=== PATIENT | female | born 1960 | race Caucasian/White ===

== ENCOUNTER 2022-03-17 12:13 | Inpatient (IN) | payer OTHER, BC ==
[~2022-03-17] VITALS: Ht 167.6 cm; Wt 96.3 kg
[2022-03-17] MEDS ORDERED: HYDROmorphone HCL 2 MG/ML VL/or syr IV ONE (15:15)
[2022-03-17] MEDS ORDERED: ONDANSETRON HCL 4 MG/2 ML VIAL IV ONE (15:15)
[2022-03-17] MEDS ORDERED: SODIUM CHLORIDE 0.9% 1,000 ML IV ONE (16:45)
[2022-03-17 19:00] LABS: Basophils # (auto) 0.1 10 ^3/uL (0-0.2); Basophils % (auto) 0.6 % (0.0-2.0); Eosinophils # (auto) 0.1 10 ^3/uL (0-0.8); Eosinophils % (auto) 0.9 % (0.0-7.0); Hematocrit 40.3 % (36.0-46.0); Hemoglobin 13.4 g/dL (12.2-16.2); Lymphocytes # (auto) 1.7 10 ^3/uL (0.4-5.4); Lymphocytes % (auto) 17.6 % (10.0-50.0); Mean Corpuscular Hemoglobin 30.2 pg (28.0-32.0); Mean Corpuscular Hgb Conc. 33.1 g/dL (32.0-36.0); Mean Corpuscular Volume 91.3 fL (80.0-100.0); Monocytes # (auto) 0.6 10 ^3/uL (0-1.3); Neutrophils # (auto) 7.1 10 ^3/uL (1.6-8.6); Neutrophils % (auto) 74.9 % (37.0-80.0); Red Blood Cells 4.42 10^6/uL (4.0-5.20); Red Cell Distribution Width 13.8 % (11.8-14.3); White Blood Cell 9.5 10^3/uL (4.4-10.8)
[2022-03-17 19:15] LABS: INR 1.03 (0.9-1.15)
[2022-03-17 19:18] LABS: Albumin 3.8 g/dL (3.4-5.0); BUN/Creatinine Ratio 25.9; Potassium 4.2 mmol/L (3.5-5.1)
[2022-03-17 19:21] LABS: Bilirubin, Total 0.4 mg/dL (0.2-1.0); Total Protein 6.9 g/dL (6.4-8.2)
[2022-03-17] MEDS: SODIUM CHLORIDE 0.9% 1,000 ML IV SCH (20:56)
[2022-03-17] MEDS: HYDROmorphone HCL 2 MG/ML VL/or syr IV PRN (20:57)
[2022-03-17] MEDS: ONDANSETRON HCL 4 MG/2 ML VIAL IV PRN (21:40)
[2022-03-18] VITALS (7 sets, daily range): BP systolic 134–172; BP diastolic 66–95
[2022-03-18] MEDS: MORPHINE SULFATE INJ 2 MG/ml SYRG IV PRN ×5 (00:10→21:32)
[2022-03-18] MEDS: HYDROmorphone HCL 2 MG/ML VL/or syr IV PRN ×6 (01:49→23:10)
[2022-03-18] MEDS: ONDANSETRON HCL 4 MG/2 ML VIAL IV PRN ×3 (01:58→14:44)
[2022-03-18] MEDS ORDERED: METO-158 PO (03:06)
[2022-03-18] MEDS ORDERED: LOSA-39 PO (03:06)
[2022-03-18] MEDS ORDERED: GABA300C10 PO (03:06)
[2022-03-18] MEDS ORDERED: SUMA100T15 PO (03:06)
[2022-03-18] MEDS ORDERED: DULO60CA PO (03:06)
[2022-03-18] MEDS ORDERED: THYR30TA PO (03:06)
[2022-03-18] MEDS: SODIUM CHLORIDE 0.9% 1,000 ML IV SCH ×2 (04:45→13:57)
[2022-03-18] MEDS ORDERED: ZOLP10TA PO (04:51)
[2022-03-18] MEDS ORDERED: BUPR200T2 PO (04:51)
[2022-03-18] MEDS ORDERED: PERCOT PO (04:51)
[2022-03-18 05:51] LABS: Urine Bacteria NONE SEEN /hpf (None Seen); Urine Blood Negative /uL (Negative); Urine Specific Gravity 1.019 (1.001-1.035); Urine WBC 10 /hpf (0 - 5)
[2022-03-18] MEDS: buPROPion HCL 100 MG TAB PO SCH ×4 (06:33→19:11)
[2022-03-18] MEDS: DULoxetine HCL 30 MG CAP PO SCH ×2 (09:50→22:19)
[2022-03-18] MEDS: GABAPENTIN 300 MG CAP PO SCH ×2 (09:51→22:19)
[2022-03-18] MEDS: hydrALAZINE HCL 20 MG/ML VL IV PRN (14:43)
[2022-03-18] MEDS: OXYCODONE W/ ACETAMINOPHEN 5/325MG TABLET PO PRN (18:42)
[2022-03-19] MEDS: MORPHINE SULFATE INJ 2 MG/ml SYRG IV PRN ×3 (01:20→10:07)
[2022-03-19] MEDS: HYDROmorphone HCL 2 MG/ML VL/or syr IV PRN ×5 (03:21→18:00)
[2022-03-19] MEDS: SODIUM CHLORIDE 0.9% 1,000 ML IV SCH ×3 (03:33→23:05)
[2022-03-19 05:00] VITALS: BP 126/72
[2022-03-19] MEDS: buPROPion HCL 100 MG TAB PO SCH ×2 (06:38→19:02)
[2022-03-19 08:00] VITALS: BP_SYST 134; BP_SYST 149; BP_DIAS 74; BP_DIAS 88
[2022-03-19] MEDS: GABAPENTIN 300 MG CAP PO SCH ×2 (10:06→22:09)
[2022-03-19] MEDS: DULoxetine HCL 30 MG CAP PO SCH ×2 (10:06→22:09)
[2022-03-19] MEDS: ONDANSETRON HCL 4 MG/2 ML VIAL IV PRN (11:13)
[2022-03-19 11:50] VITALS: BP 153/85
[2022-03-19] MEDS ORDERED: ceFAZolin 1GM/50ML 100 ML IV ONE (13:00)
[2022-03-19] MEDS ORDERED: ONDANSETRON HCL 4 MG/2 ML VIAL ONE (13:14)
[2022-03-19] MEDS ORDERED: MIDAZOLAM HCL 2MG/2ML 2ml VIAL (1mg/ml) ONE (13:14)
[2022-03-19] MEDS ORDERED: fentaNYL CITRATE 100 MCG/2 ML VL ONE (13:14)
[2022-03-19] MEDS ORDERED: SODIUM CHLORIDE LOCK 10 ML ONE (13:14)
[2022-03-19] MEDS ORDERED: MORPHINE SULF PF 5 MG/10 ML VIAL ONE (13:14)
[2022-03-19] MEDS ORDERED: ROCURONIUM 10MG/ML 10ML VIAL IV ONE (14:16)
[2022-03-19] MEDS ORDERED: METOCLOPRAMIDE HCL 5MG/ml INJ 2ml VIAL IV PRN (15:00)
[2022-03-19] MEDS ORDERED: fentaNYL CITRATE 100 MCG/2 ML VL IV PRN (15:00)
[2022-03-19] MEDS ORDERED: MORPHINE SULFATE 4 MG/ML SYR/VIAL IV PRN (15:00)
[2022-03-19] MEDS ORDERED: MEPERIDINE HCL (25 MG/ML) 1ML VIAL ONE (16:45)
[2022-03-19] MEDS ORDERED: PROPOFOL 10 MG/ML 20 ML IV ONE (17:22)
[2022-03-19] MEDS ORDERED: DexAMETHasone SOD PHOS 10MG/1ML VIAL INJ IV ONE (17:22)
[2022-03-19] MEDS ORDERED: LABETALOL HCL 5 MG/ML 4ML SYRINGE IV ONE (17:40)
[2022-03-19] MEDS: LABETALOL HCL 5 MG/ML 4ML SYRINGE IV PRN ×2 (17:44→18:20)
[2022-03-19] MEDS ORDERED: HYDROmorphone HCL 2 MG/ML VL/or syr ONE (17:48)
[2022-03-19 18:50] VITALS: BP 149/89
[2022-03-19 22:00] VITALS: BP 162/84
[2022-03-19] MEDS: oxyCODONE ER 10 MG TAB PO SCH (22:10)
[2022-03-20] VITALS (7 sets, daily range): BP systolic 118–169; BP diastolic 58–90
[2022-03-20] MEDS: HYDROmorphone HCL 2 MG/ML VL/or syr IV PRN ×2 (00:09→06:03)
[2022-03-20 05:16] LABS: Basophils # (auto) 0 10 ^3/uL (0-0.2); Basophils % (auto) 0.1 % (0.0-2.0); Eosinophils # (auto) 0 10 ^3/uL (0-0.8); Hematocrit 33.5 % (36.0-46.0); Hemoglobin 11.5 g/dL (12.2-16.2); Lymphocytes % (auto) 9.7 % (10.0-50.0); Mean Corpuscular Hemoglobin 31.1 pg (28.0-32.0); Mean Corpuscular Hgb Conc. 34.2 g/dL (32.0-36.0); Mean Corpuscular Volume 91.1 fL (80.0-100.0); Monocytes # (auto) 0.9 10 ^3/uL (0-1.3); Monocytes % (auto) 8.8 % (0.0-12.0); Neutrophils # (auto) 8.3 10 ^3/uL (1.6-8.6); Neutrophils % (auto) 81.4 % (37.0-80.0); Red Blood Cells 3.68 10^6/uL (4.0-5.20); White Blood Cell 10.2 10^3/uL (4.4-10.8)
[2022-03-20 05:38] LABS: BUN/Creatinine Ratio 17.3; Calcium 8.7 mg/dL (8.5-10.1); Potassium 3.9 mmol/L (3.5-5.1)
[2022-03-20] MEDS: buPROPion HCL 100 MG TAB PO SCH ×2 (06:03→18:33)
[2022-03-20] MEDS: SODIUM CHLORIDE 0.9% 1,000 ML IV SCH ×3 (06:45→21:41)
[2022-03-20] MEDS: hydrALAZINE HCL 20 MG/ML VL IV PRN (08:11)
[2022-03-20] MEDS: MORPHINE SULFATE INJ 2 MG/ml SYRG IV PRN ×2 (08:45→12:21)
[2022-03-20] MEDS ORDERED: BUPR200T3 PO (09:08)
[2022-03-20] MEDS ORDERED: MET50T PO (09:08)
[2022-03-20] MEDS: METOPROLOL TARTRATE 50 MG TAB PO SCH ×2 (09:54→21:26)
[2022-03-20] MEDS: GABAPENTIN 300 MG CAP PO SCH ×2 (09:54→21:26)
[2022-03-20] MEDS: DULoxetine HCL 30 MG CAP PO SCH ×2 (09:54→21:26)
[2022-03-20] MEDS: LOSARTAN POTASSIUM 50 MG TAB PO SCH (09:54)
[2022-03-20] MEDS: ENOXAPARIN SOD 40 MG/0.4 ML SYRINGE SC SCH (09:55)
[2022-03-20] MEDS: oxyCODONE ER 10 MG TAB PO SCH ×2 (09:55→21:27)
[2022-03-20] MEDS ORDERED: PATIENTS OWN MEDICATION (Losartan Potassium 100 MG) PO SCH (10:00)
[2022-03-20] MEDS: OXYCODONE W/ ACETAMINOPHEN 5/325MG TABLET PO PRN ×2 (16:14→23:56)
[2022-03-21] VITALS (7 sets, daily range): BP systolic 101–149; BP diastolic 55–88
[2022-03-21] MEDS: OXYCODONE W/ ACETAMINOPHEN 5/325MG TABLET PO PRN ×3 (06:02→18:42)
[2022-03-21] MEDS: buPROPion HCL 100 MG TAB PO SCH ×2 (06:02→18:41)
[2022-03-21] MEDS: DULoxetine HCL 30 MG CAP PO SCH ×2 (10:40→21:56)
[2022-03-21] MEDS: oxyCODONE ER 10 MG TAB PO SCH ×2 (10:41→22:00)
[2022-03-21] MEDS: LOSARTAN POTASSIUM 50 MG TAB PO SCH (10:43)
[2022-03-21] MEDS: METOPROLOL TARTRATE 50 MG TAB PO SCH ×2 (10:43→21:57)
[2022-03-21] MEDS: GABAPENTIN 300 MG CAP PO SCH ×2 (10:43→21:56)
[2022-03-21] MEDS: ENOXAPARIN SOD 40 MG/0.4 ML SYRINGE SC SCH (10:43)
[2022-03-21] MEDS: MORPHINE SULFATE INJ 2 MG/ml SYRG IV PRN (11:44)
[2022-03-21] MEDS: SODIUM CHLORIDE 0.9% 1,000 ML IV SCH ×2 (13:46→22:46)
[2022-03-22] MEDS: OXYCODONE W/ ACETAMINOPHEN 5/325MG TABLET PO PRN ×5 (00:47→15:45)
[2022-03-22 05:11] VITALS: BP 119/59
[2022-03-22] MEDS: buPROPion HCL 100 MG TAB PO SCH ×2 (06:44→20:53)
[2022-03-22 08:00] VITALS: BP 134/61
[2022-03-22 09:00] VITALS: BP 135/74
[2022-03-22] MEDS: LOSARTAN POTASSIUM 50 MG TAB PO SCH (09:19)
[2022-03-22] MEDS: DULoxetine HCL 30 MG CAP PO SCH ×2 (09:19→20:53)
[2022-03-22] MEDS: SODIUM CHLORIDE 0.9% 1,000 ML IV SCH ×2 (09:19→19:30)
[2022-03-22] MEDS: METOPROLOL TARTRATE 50 MG TAB PO SCH ×2 (09:20→20:52)
[2022-03-22] MEDS: GABAPENTIN 300 MG CAP PO SCH ×2 (09:20→20:52)
[2022-03-22] MEDS: ENOXAPARIN SOD 40 MG/0.4 ML SYRINGE SC SCH (09:21)
[2022-03-22] MEDS: oxyCODONE ER 10 MG TAB PO SCH ×2 (09:21→20:52)
[2022-03-22 09:40] LABS: Basophils # (auto) 0 10 ^3/uL (0-0.2); Basophils % (auto) 0.3 % (0.0-2.0); Eosinophils # (auto) 0.1 10 ^3/uL (0-0.8); Eosinophils % (auto) 1.5 % (0.0-7.0); Hematocrit 29.8 % (36.0-46.0); Hemoglobin 9.9 g/dL (12.2-16.2); Lymphocytes # (auto) 1.4 10 ^3/uL (0.4-5.4); Lymphocytes % (auto) 18.6 % (10.0-50.0); Mean Corpuscular Hemoglobin 30.6 pg (28.0-32.0); Mean Corpuscular Hgb Conc. 33.3 g/dL (32.0-36.0); Mean Corpuscular Volume 91.9 fL (80.0-100.0); Monocytes # (auto) 0.7 10 ^3/uL (0-1.3); Monocytes % (auto) 9.2 % (0.0-12.0); Neutrophils # (auto) 5.5 10 ^3/uL (1.6-8.6); Neutrophils % (auto) 70.4 % (37.0-80.0); Red Blood Cells 3.24 10^6/uL (4.0-5.20); Red Cell Distribution Width 13.2 % (11.8-14.3); White Blood Cell 7.8 10^3/uL (4.4-10.8)
[2022-03-22 10:04] LABS: BUN/Creatinine Ratio 21.3; Calcium 8.5 mg/dL (8.5-10.1); Potassium 3.8 mmol/L (3.5-5.1)
[2022-03-22 13:00] VITALS: BP 134/61
[2022-03-22 16:45] VITALS: BP 141/74
[2022-03-22 22:00] VITALS: BP 146/75
[2022-03-23] VITALS (7 sets, daily range): BP systolic 130–147; BP diastolic 63–78
[2022-03-23] MEDS: OXYCODONE W/ ACETAMINOPHEN 5/325MG TABLET PO PRN ×4 (00:22→18:58)
[2022-03-23 05:58] LABS: Hematocrit 28.8 % (36.0-46.0); Hemoglobin 9.8 g/dL (12.2-16.2)
[2022-03-23] MEDS: SODIUM CHLORIDE 0.9% 1,000 ML IV SCH (06:40)
[2022-03-23] MEDS: buPROPion HCL 100 MG TAB PO SCH ×2 (06:40→18:58)
[2022-03-23] MEDS: LOSARTAN POTASSIUM 50 MG TAB PO SCH (09:17)
[2022-03-23] MEDS: DULoxetine HCL 30 MG CAP PO SCH ×2 (09:17→21:36)
[2022-03-23] MEDS: GABAPENTIN 300 MG CAP PO SCH ×2 (09:18→21:37)
[2022-03-23] MEDS: oxyCODONE ER 10 MG TAB PO SCH ×2 (09:18→21:36)
[2022-03-23] MEDS: METOPROLOL TARTRATE 50 MG TAB PO SCH ×2 (09:18→21:37)
[2022-03-23] MEDS: ENOXAPARIN SOD 40 MG/0.4 ML SYRINGE SC SCH (09:19)
[2022-03-23] MEDS: HYDROmorphone HCL 2 MG/ML VL/or syr IV PRN (15:11)
[2022-03-24] MEDS: OXYCODONE W/ ACETAMINOPHEN 5/325MG TABLET PO PRN ×3 (04:56→13:48)
[2022-03-24 05:00] VITALS: BP 145/80
[2022-03-24 06:43] LABS: Hematocrit 28.1 % (36.0-46.0); Hemoglobin 9.8 g/dL (12.2-16.2)
[2022-03-24] MEDS: buPROPion HCL 100 MG TAB PO SCH (07:05)
[2022-03-24 08:00] VITALS: BP 138/70
[2022-03-24] MEDS: LOSARTAN POTASSIUM 50 MG TAB PO SCH (08:49)
[2022-03-24] MEDS: DULoxetine HCL 30 MG CAP PO SCH (08:50)
[2022-03-24] MEDS: GABAPENTIN 300 MG CAP PO SCH (08:50)
[2022-03-24] MEDS: METOPROLOL TARTRATE 50 MG TAB PO SCH (08:50)
[2022-03-24] MEDS: oxyCODONE ER 10 MG TAB PO SCH (08:51)
[2022-03-24] MEDS: ENOXAPARIN SOD 40 MG/0.4 ML SYRINGE SC SCH (08:52)
[2022-03-24 09:38] VITALS: BP 144/80
[2022-03-24 13:25] VITALS: BP 141/73
[2022-03-24 15:11] VITALS: BP 144/80
[2022-03-24 16:55] VITALS: BP 145/78
== END 2022-03-24 17:23 | disposition home health service (06) | DRG 481 ==
LOC: EDSEX 12:13 → ER 12:13 → EDBD 12:13 → OVERFLOW 18:46 → WEST WING 03-18 02:29 → OVERFLOW 03-23 13:24 → WEST WING 03-23 13:29
PROVIDERS: ADMIT Internal Medicine; ATTEND Internal Medicine
PROC: 0QS736Z Reposition Left Upper Femur with Intramedullary Internal Fixation Device, Percutaneous Approach (ICD-10-PCS; principal; 2022-03-19 15:01)
DX: S72.142A Displaced intertrochanteric fracture of left femur, initial encounter for closed fracture (principal); I13.0 Hypertensive heart and chronic kidney disease with heart failure and stage 1 through stage 4 chronic kidney disease, or unspecified chronic kidney disease; I50.32 Chronic diastolic (congestive) heart failure; N18.2 Chronic kidney disease, stage 2 (mild); D64.9 Anemia, unspecified; E66.9 Obesity, unspecified; Z96.652 Presence of left artificial knee joint; G89.29 Other chronic pain; M79.18 Myalgia, other site; Z20.822 Contact with and (suspected) exposure to COVID-19; Z71.3 Dietary counseling and surveillance; V29.88XA Motorcycle rider (driver) (passenger) injured in other specified transport accidents, initial encounter; Z85.3 Personal history of malignant neoplasm of breast; Y93.89 Activity, other specified; Y92.89 Other specified places as the place of occurrence of the external cause; Y99.8 Other external cause status; Z68.34 Body mass index [BMI] 34.0-34.9, adult
CPT/HCPCS: 36415; 70450; 71045; 72170; 72192; 73501; 73502; 76000; 80048; 80053; 81001; 82306; 83036; 83735; 84484; 85014; 85018; 85025; 85610; 85730; 86850; 86900; 86901; 93306; 96361; 96374; 96375; 97110; 97116; 97163; 97530; 99291; C1713; C1769; G0378; J0690; J1100; J2250; J2405; J2704; J3490